=== PATIENT | male | born 1985 | race Caucasian/White ===

== ENCOUNTER 2018-09-09 02:43 | Emergency (ER) | payer MEDICAID ==
[~2018-09-09] VITALS: Ht 165.1 cm; Wt 99.8 kg
[2018-09-09 02:45] VITALS: Ht 165.1 cm; Wt 99.8 kg
[2018-09-09 09:14] VITALS: BP 104/59
== END 2018-09-09 09:14 | disposition other institution (70) ==
LOC: ED 02:43
DX: F10.129 Alcohol abuse with intoxication, unspecified (principal); S00.31XA Abrasion of nose, initial encounter; Y04.0XXA Assault by unarmed brawl or fight, initial encounter; Y93.89 Activity, other specified; Y92.89 Other specified places as the place of occurrence of the external cause; Y99.8 Other external cause status
CPT/HCPCS: 90714; J2060; J2405; J3490; J7030

== ENCOUNTER 2018-09-09 02:43 | Emergency (ER) | payer OTHER | END 2018-09-09 09:15 | disposition other institution (70) | LOC: ED 02:43 | DX: Z02.89 Encounter for other administrative examinations (principal) | CPT/HCPCS: J7030 ==